=== PATIENT | male | born 1960 ===

== ENCOUNTER 2020-04-15 08:47 | Outpatient (CLI) | payer BC, OTHER ==
[2020-04-15] MEDS ORDERED: Magnevist 469MG/ML 20 ML VIAL ONE (09:35)
--- NOTE | 2020-04-15 12:19 | MRI ---
EXAM: MRI of the pelvis/prostate without and with contrast HISTORY: elevated PSA COMPARISON: None TECHNIQUE: Multiplanar multisequence MR images were obtained of the pelvis without and with IV contra st. Evaluation of this exam was performed with a Status Overload workstation. FINDINGS: Central gland: Moderate hypertrophy of the central gland consistent with BPH. Prostate volume is arnoldo mated at 91 mL. There is an oval-shaped nodule in the right base of the prostate measuring 2.8 cm in greatest dimension. This appears to have a low T2 signal intensity rim and likely represents a BPH nodule. No suspicious low T2 signal lesion is seen. Peripheral zone: No restricted diffusion is seen. No low signal on ADC map. Seminal vesicles: Intact without abnormality Neurovascular bundles: Intact Pelvic lymph nodes: No pelvic adenopathy Other visualized intrapelvic structures: Unremarkable Osseous structures: No marrow signal abnormality IMPRESSION: PI-RADS Category 2-low likelihood that a clinically significant cancer is present.
== END 2020-04-15 08:48 | disposition home or self-care (01) ==
LOC: TBSIIMAG 08:47
PROVIDERS: ATTEND Urology
DX: R97.20 Elevated prostate specific antigen [PSA] (principal)
CPT/HCPCS: 72197